=== PATIENT | female | born 1950 | race Caucasian/White ===

== ENCOUNTER 2021-02-26 19:37 | Emergency (ER) ==
[2021-02-27 13:18] LABS: SARS-CoV-2 PCR by NAA DETECTED (NotDetected)
== END 2021-02-26 22:30 | disposition home or self-care (01) ==
LOC: ERS 19:37
DX: U07.1 COVID-19 (principal); I12.9 Hypertensive chronic kidney disease with stage 1 through stage 4 chronic kidney disease, or unspecified chronic kidney disease; N18.9 Chronic kidney disease, unspecified; J44.9 Chronic obstructive pulmonary disease, unspecified; Z86.718 Personal history of other venous thrombosis and embolism; M10.9 Gout, unspecified
CPT/HCPCS: 71045; U0003; U0005

== ENCOUNTER 2021-02-28 18:25 | Inpatient (IN) | payer MEDICARE, OTHER ==
[2021-02-28 19:35] LABS: #Eosinphils 0.1 thou/uL (0.0-0.7); #Lymphocytes 1.2 thou/uL (1.20-3.40); #Monocytes 0.7 thou/uL (0.11-0.59); #Neutrophils 7.3 thou/uL (1.40-6.50); %Basophils 0.4 % (0.0-1.0); %Eosinophils 1.1 % (0.0-10.0); %Lymphocytes 12.7 % (21.0-51.0); %Monocytes 7.4 % (0.0-10.0); %Neutrophils 78.4 % (42.0-75.0); Hemoglobin 10.3 g/dL (12.0-16.0); Mean Corpuscular Hemoglobin 30.1 pg (27.0-31.0); Mean Corpuscular Volume 91.2 fL (78.0-98.0); Platelet Count 197 thou/uL (130-400); RBC Distribution Width 13.1 % (11.5-14.5); Red Blood Cell (RBC) Count 3.41 mill/uL (4.20-5.40); White Blood Cell (WBC) Count 9.3 thou/uL (4.8-10.8)
[2021-02-28 19:49] LABS: ALT (SGPT) 19 U/L (8-55); AST (SGOT) 19 U/L (5-34); Albumin 3.4 g/dL (3.4-4.8); Alkaline Phosphatase 104 U/L (40-110); Anion Gap 16 mmol/L (10-20); BUN (Urea Nitrogen) 23 mg/dL (9.8-20.1); Bilirubin, Total 0.8 mg/dL (0.2-1.2); Calc. Creatinine Clearance 0 mL/min (70-130); Calcium 8.2 mg/dL (7.8-10.44); Carbon Dioxide 24 mmol/L (23-31); Chloride 96 mmol/L (98-107); Globulin 2.4 g/dL (2.4-3.5); Glucose 145 mg/dL (83-110); Potassium 3.9 mmol/L (3.5-5.1); Protein, Total 5.8 g/dL (5.8-8.1); Sodium 132 mmol/L (136-145)
[2021-02-28] MEDS ORDERED: Ondansetron PF 4 MG/2 ML Vial ONE (22:06)
[2021-02-28 22:58] LABS: Troponin I Less than 0.010 ng/mL (< 0.028)
[2021-02-28 22:58] LABS: Bilirubin Negative (Negative); Blood, Urine Negative (Negative); Clarity Clear (Clear); Glucose, Urine (Dipstick) Normal (Negative); Ketone, Urine Negative (Negative); Leukocyte 500 Leu/uL (Negative); Nitrite Negative (Negative); Protein, Urine (Dipstick) 10 mg/dL (Neg-Trace); RBC/HPF 0-3 HPF (0-3); Specific Gravity, Urine 1.011 (1.002-1.036); Squamous Epithelial 0-3 HPF (0-3); Urobilinogen Normal mg/dL (Less than 2); pH, Urine 5.5 (5.0-9.0)
[2021-02-28 22:59] LABS: Bacteria/HPF 1+ HPF (None Seen)
[2021-02-28] MEDS ORDERED: Ondansetron ODT 4 MG TAB PO PRN (23:31)
[2021-02-28] MEDS ORDERED: Lactated Ringer's 1,000 ML IV SCH (23:45)
[2021-03-01 00:43] VITALS: BMI 46.0
[2021-03-01] MEDS ORDERED: Acetaminophen 500 MG TAB PO SCH (01:00)
[2021-03-01] MEDS ORDERED: Cyclobenzaprine 10 MG TAB PO SCH (01:00)
[2021-03-01] MEDS: cefTRIAXone\\ROCEPHIN 1 GM in Sodium Chloride 0.9% 100 ML IVPB SCH (01:25)
[2021-03-01] MEDS: Sodium Chloride 0.9% 1,000 ML IV SCH ×3 (01:33→20:16)
[2021-03-01] MEDS ORDERED: Warfarin Sodium 5 MG TAB PO ONE (01:39)
[2021-03-01 02:35] LABS: Prothrombin Time 68.6 sec (12.0-14.7)
[2021-03-01 02:43] LABS: INR-International Normal Ratio 8.1
[2021-03-01 07:35] LABS: #Basophils 0.1 thou/uL (0.0-0.2); #Eosinphils 0.1 thou/uL (0.0-0.7); #Lymphocytes 1.3 thou/uL (1.20-3.40); #Monocytes 1.1 thou/uL (0.11-0.59); %Basophils 0.5 % (0.0-1.0); %Eosinophils 1.3 % (0.0-10.0); %Lymphocytes 12.3 % (21.0-51.0); %Monocytes 10.5 % (0.0-10.0); %Neutrophils 75.4 % (42.0-75.0); Hemoglobin 8.8 g/dL (12.0-16.0); Mean Corpuscular HGB CONC 32.4 g/dL (32.0-36.0); Mean Corpuscular Hemoglobin 29.9 pg (27.0-31.0); Mean Corpuscular Volume 92.3 fL (78.0-98.0); Mean Platelet Volume 10.2 fL (7.4-10.4); Platelet Count 180 thou/uL (130-400); RBC Distribution Width 13.1 % (11.5-14.5); Red Blood Cell (RBC) Count 2.95 mill/uL (4.20-5.40); White Blood Cell (WBC) Count 10.6 thou/uL (4.8-10.8)
[2021-03-01] MEDS: Trospium 20 MG TAB PO SCH (08:00)
[2021-03-01] MEDS ORDERED: Dexamethasone 4 MG TAB PO SCH ×2 (08:00→11:15)
[2021-03-01] MEDS: busPIRone HCl 10 MG TAB PO SCH (08:00)
[2021-03-01] MEDS: Ferrous Sulfate 325 MG TAB PO SCH (08:00)
[2021-03-01 08:16] LABS: ALT (SGPT) 15 U/L (8-55); AST (SGOT) 12 U/L (5-34); Albumin 3.2 g/dL (3.4-4.8); Alkaline Phosphatase 96 U/L (40-110); Anion Gap 13 mmol/L (10-20); BUN (Urea Nitrogen) 22 mg/dL (9.8-20.1); Bilirubin, Total 0.6 mg/dL (0.2-1.2); CRP (Inflammatory) 8.17 mg/dL (= or < 0.5); Calc. Creatinine Clearance 54 mL/min (70-130); Calcium 8.3 mg/dL (7.8-10.44); Carbon Dioxide 28 mmol/L (23-31); Chloride 101 mmol/L (98-107); Globulin 2.7 g/dL (2.4-3.5); Glucose 126 mg/dL (83-110); Potassium 4.5 mmol/L (3.5-5.1); Protein, Total 5.9 g/dL (5.8-8.1); Sodium 137 mmol/L (136-145)
[2021-03-01] MEDS: Acetaminophen 325 MG TAB PO PRN ×2 (11:33→16:19)
[2021-03-01] MEDS ORDERED: Warfarin Sodium 5 MG TAB PO SCH (17:00)
[2021-03-01] MEDS: Simvastatin 10 MG TAB PO SCH (20:17)
[2021-03-01] MEDS ORDERED: Benzonatate 100 MG CAP PO SCH (21:00)
[2021-03-02] MEDS: cefTRIAXone\\ROCEPHIN 1 GM in Sodium Chloride 0.9% 100 ML IVPB SCH (01:23)
[2021-03-02] MEDS: Sodium Chloride 0.9% 1,000 ML IV SCH ×5 (01:27→21:55)
[2021-03-02] MEDS: Acetaminophen 325 MG TAB PO PRN (05:58)
[2021-03-02 06:12] LABS: INR-International Normal Ratio 13.3
[2021-03-02 06:30] LABS: #Eosinphils 0.1 thou/uL (0.0-0.7); #Lymphocytes 0.9 thou/uL (1.20-3.40); #Monocytes 1.2 thou/uL (0.11-0.59); #Neutrophils 16.8 thou/uL (1.40-6.50); %Basophils 0.1 % (0.0-1.0); %Eosinophils 0.3 % (0.0-10.0); %Lymphocytes 4.9 % (21.0-51.0); %Monocytes 6.4 % (0.0-10.0); %Neutrophils 88.3 % (42.0-75.0); Hemoglobin 7.8 g/dL (12.0-16.0); Mean Corpuscular HGB CONC 32.6 g/dL (32.0-36.0); Mean Corpuscular Hemoglobin 30.1 pg (27.0-31.0); Mean Corpuscular Volume 92.3 fL (78.0-98.0); Mean Platelet Volume 9.6 fL (7.4-10.4); Platelet Count 273 thou/uL (130-400); RBC Distribution Width 13.3 % (11.5-14.5); White Blood Cell (WBC) Count 19.1 thou/uL (4.8-10.8)
[2021-03-02 06:38] LABS: Anion Gap 17 mmol/L (10-20); BUN (Urea Nitrogen) 27 mg/dL (9.8-20.1); Calc. Creatinine Clearance 50 mL/min (70-130); Calcium 7.9 mg/dL (7.8-10.44); Carbon Dioxide 23 mmol/L (23-31); Chloride 106 mmol/L (98-107); Glucose 171 mg/dL (83-110); Potassium 5.2 mmol/L (3.5-5.1); Sodium 141 mmol/L (136-145)
[2021-03-02] MEDS: Cepastat Lozenges 1 LOZ PO PRN ×2 (08:15→16:23)
[2021-03-02] MEDS: Trospium 20 MG TAB PO SCH (08:15)
[2021-03-02] MEDS: busPIRone HCl 10 MG TAB PO SCH (08:16)
[2021-03-02] MEDS: Cyclobenzaprine 10 MG TAB PO PRN ×2 (08:16→16:23)
[2021-03-02] MEDS: Dexamethasone 4 MG TAB PO SCH (08:16)
[2021-03-02] MEDS: Ferrous Sulfate 325 MG TAB PO SCH (08:17)
[2021-03-02] MEDS ORDERED: Phytonadione 10 MG/ML AMP SLOW IVP SCH (09:15)
[2021-03-02] MEDS ORDERED: Amlodipine 10 MG TAB PO SCH (10:15)
[2021-03-02 12:27] LABS: INR-International Normal Ratio 2.8; Prothrombin Time 29.5 sec (12.0-14.7)
[2021-03-02] MEDS: Simvastatin 10 MG TAB PO SCH (20:32)
[2021-03-03] MEDS: cefTRIAXone\\ROCEPHIN 1 GM in Sodium Chloride 0.9% 100 ML IVPB SCH (00:41)
[2021-03-03] MEDS: Sodium Chloride 0.9% 1,000 ML IV SCH ×2 (04:10→12:12)
[2021-03-03] MEDS: Cepastat Lozenges 1 LOZ PO PRN (06:00)
[2021-03-03 06:32] LABS: INR-International Normal Ratio 1.2; Prothrombin Time 14.7 sec (12.0-14.7)
[2021-03-03 06:47] LABS: Anion Gap 13 mmol/L (10-20); BUN (Urea Nitrogen) 31 mg/dL (9.8-20.1); Calc. Creatinine Clearance 52 mL/min (70-130); Calcium 7.5 mg/dL (7.8-10.44); Carbon Dioxide 23 mmol/L (23-31); Chloride 107 mmol/L (98-107); Glucose 145 mg/dL (83-110); Potassium 4.6 mmol/L (3.5-5.1); Sodium 138 mmol/L (136-145)
[2021-03-03] MEDS: Ferrous Sulfate 325 MG TAB PO SCH (08:43)
[2021-03-03] MEDS: Trospium 20 MG TAB PO SCH (08:43)
[2021-03-03] MEDS: busPIRone HCl 10 MG TAB PO SCH (08:43)
[2021-03-03] MEDS: Cyclobenzaprine 10 MG TAB PO PRN ×2 (08:43→15:37)
[2021-03-03] MEDS: Amlodipine 10 MG TAB PO SCH (08:43)
[2021-03-03] MEDS: Dexamethasone 4 MG TAB PO SCH (08:44)
[2021-03-03 11:53] LABS: Anisocytosis SLIGHT = 6-15 cells (100X) (0-5/hpf); Band 6 % (5-11); Lymphocytes 7 % (21-51); MDiff Complete? YES; Mean Corpuscular HGB CONC 32.1 g/dL (32.0-36.0); Mean Corpuscular Hemoglobin 30.3 pg (27.0-31.0); Mean Corpuscular Volume 94.3 fL (78.0-98.0); Mean Platelet Volume 9.3 fL (7.4-10.4); Monocytes 6 % (0-10); Neutrophil 81 % (42-75); Nucleated RBC 1 % (0); Platelet Count 304 thou/uL (130-400); Polychromasia SLIGHT = 2-3 cells (100X) (0-2/hpf); RBC Distribution Width 13.6 % (11.5-14.5); Red Blood Cell (RBC) Count 1.98 mill/uL (4.20-5.40); White Blood Cell (WBC) Count 21.5 thou/uL (4.8-10.8)
[2021-03-03] MEDS: Warfarin Sodium 2.5 MG TAB PO SCH (17:40)
[2021-03-03 18:19] LABS: Mean Corpuscular HGB CONC 33.8 g/dL (32.0-36.0); Mean Corpuscular Volume 91.7 fL (78.0-98.0); Mean Platelet Volume 8.5 fL (7.4-10.4); Platelet Count 248 thou/uL (130-400); RBC Distribution Width 13.6 % (11.5-14.5); Red Blood Cell (RBC) Count 2.57 mill/uL (4.20-5.40); White Blood Cell (WBC) Count 19.7 thou/uL (4.8-10.8)
[2021-03-03] MEDS: Simvastatin 10 MG TAB PO SCH (20:16)
[2021-03-04] MEDS: Trospium 20 MG TAB PO SCH (08:12)
[2021-03-04] MEDS: Cyclobenzaprine 10 MG TAB PO PRN ×2 (08:12→16:04)
[2021-03-04] MEDS: busPIRone HCl 10 MG TAB PO SCH (08:12)
[2021-03-04] MEDS: Ferrous Sulfate 325 MG TAB PO SCH (08:12)
[2021-03-04] MEDS: Cepastat Lozenges 1 LOZ PO PRN (08:12)
[2021-03-04] MEDS: Amlodipine 10 MG TAB PO SCH (08:12)
[2021-03-04] MEDS: Dexamethasone 4 MG TAB PO SCH (08:12)
[2021-03-04 08:30] LABS: Hemoglobin 7.6 g/dL (12.0-16.0); Mean Corpuscular HGB CONC 31.8 g/dL (32.0-36.0); Mean Corpuscular Hemoglobin 29.7 pg (27.0-31.0); Mean Corpuscular Volume 93.2 fL (78.0-98.0); Mean Platelet Volume 8.6 fL (7.4-10.4); Platelet Count 242 thou/uL (130-400); RBC Distribution Width 14.1 % (11.5-14.5); Red Blood Cell (RBC) Count 2.57 mill/uL (4.20-5.40)
[2021-03-04 08:31] LABS: INR-International Normal Ratio 1.2; Prothrombin Time 14.8 sec (12.0-14.7)
[2021-03-04 08:41] LABS: Anion Gap 13 mmol/L (10-20); BUN (Urea Nitrogen) 36 mg/dL (9.8-20.1); CRP (Inflammatory) 7.42 mg/dL (= or < 0.5); Calc. Creatinine Clearance 64 mL/min (70-130); Calcium 7.8 mg/dL (7.8-10.44); Carbon Dioxide 22 mmol/L (23-31); Chloride 112 mmol/L (98-107); Glucose 145 mg/dL (83-110); Potassium 4.8 mmol/L (3.5-5.1); Sodium 142 mmol/L (136-145)
[2021-03-04 11:00] LABS: Band 3 % (5-11); Lymphocytes 6 % (21-51); MDiff Complete? YES; Monocytes 4 % (0-10); Neutrophil 87 % (42-75); Platelet Morphology Comment Appears Adequate; Polychromasia MODERATE = 3-4 cells (100X) (0-2/hpf)
[2021-03-04] MEDS ORDERED: Glycerin Adult Supp. (24 ct jar) PR SCH (11:30)
[2021-03-04] MEDS: Senokot S 8.6-50 MG TAB PO PRN (12:29)
[2021-03-04] MEDS ORDERED: hydrOXYzine 10 MG TAB PO PRN (14:39)
[2021-03-04] MEDS: Warfarin Sodium 2.5 MG TAB PO SCH (16:04)
[2021-03-04] MEDS: Sodium Chloride 0.9% 1,000 ML IV SCH (16:54)
[2021-03-04] MEDS: Simvastatin 10 MG TAB PO SCH (20:56)
[2021-03-05] MEDS: Sodium Chloride 0.9% 1,000 ML IV SCH (05:25)
[2021-03-05 06:15] LABS: INR-International Normal Ratio 1.2; Prothrombin Time 14.8 sec (12.0-14.7)
[2021-03-05] MEDS ORDERED: Glycerin Adult Supp. (24 ct jar) PR SCH (06:15)
[2021-03-05 06:27] LABS: Anion Gap 12 mmol/L (10-20); BUN (Urea Nitrogen) 39 mg/dL (9.8-20.1); CRP (Inflammatory) 3.87 mg/dL (= or < 0.5); Calc. Creatinine Clearance 74 mL/min (70-130); Calcium 8.4 mg/dL (7.8-10.44); Carbon Dioxide 25 mmol/L (23-31); Chloride 112 mmol/L (98-107); Glucose 126 mg/dL (83-110); Potassium 5.2 mmol/L (3.5-5.1); Sodium 144 mmol/L (136-145)
[2021-03-05 07:16] LABS: Band 5 % (5-11); Hemoglobin 7.9 g/dL (12.0-16.0); Lymphocytes 6 % (21-51); MDiff Complete? YES; Mean Corpuscular HGB CONC 33.4 g/dL (32.0-36.0); Mean Corpuscular Hemoglobin 31.4 pg (27.0-31.0); Mean Corpuscular Volume 93.9 fL (78.0-98.0); Mean Platelet Volume 8.7 fL (7.4-10.4); Monocytes 7 % (0-10); Neutrophil 82 % (42-75); Platelet Count 257 thou/uL (130-400); Platelet Morphology Comment Appears Adequate; Polychromasia MODERATE = 3-4 cells (100X) (0-2/hpf); RBC Distribution Width 14.7 % (11.5-14.5); White Blood Cell (WBC) Count 16.3 thou/uL (4.8-10.8)
[2021-03-05] MEDS: Cyclobenzaprine 10 MG TAB PO PRN (08:18)
[2021-03-05] MEDS: busPIRone HCl 10 MG TAB PO SCH (08:19)
[2021-03-05] MEDS: Cepastat Lozenges 1 LOZ PO PRN (08:19)
[2021-03-05] MEDS: Amlodipine 10 MG TAB PO SCH (08:19)
[2021-03-05] MEDS: Trospium 20 MG TAB PO SCH (08:19)
[2021-03-05] MEDS: Ferrous Sulfate 325 MG TAB PO SCH (08:19)
[2021-03-05] MEDS: Dexamethasone 4 MG TAB PO SCH (08:19)
[2021-03-05] MEDS: Polyethylene Glycol 3350 17 GM Packet PO SCH ×2 (09:29→21:01)
[2021-03-05] MEDS: Apixaban 5 MG TAB PO SCH (21:01)
[2021-03-05] MEDS: Simvastatin 10 MG TAB PO SCH (21:01)
[2021-03-06 06:39] LABS: Hemoglobin 8.5 g/dL (12.0-16.0); Mean Corpuscular HGB CONC 32.8 g/dL (32.0-36.0); Mean Corpuscular Hemoglobin 30.7 pg (27.0-31.0); Mean Corpuscular Volume 93.7 fL (78.0-98.0); Mean Platelet Volume 8.1 fL (7.4-10.4); Platelet Count 265 thou/uL (130-400); RBC Distribution Width 14.7 % (11.5-14.5); Red Blood Cell (RBC) Count 2.76 mill/uL (4.20-5.40); White Blood Cell (WBC) Count 19.5 thou/uL (4.8-10.8)
[2021-03-06 06:55] LABS: INR-International Normal Ratio 1.4; Prothrombin Time 17.6 sec (12.0-14.7)
[2021-03-06 06:57] LABS: Anion Gap 13 mmol/L (10-20); BUN (Urea Nitrogen) 36 mg/dL (9.8-20.1); CRP (Inflammatory) 1.91 mg/dL (= or < 0.5); Calc. Creatinine Clearance 91 mL/min (70-130); Calcium 8.1 mg/dL (7.8-10.44); Carbon Dioxide 25 mmol/L (23-31); Chloride 109 mmol/L (98-107); Glucose 137 mg/dL (83-110); Potassium 4.9 mmol/L (3.5-5.1); Sodium 142 mmol/L (136-145)
[2021-03-06 08:03] LABS: Band 4 % (5-11); Lymphocytes 8 % (21-51); MDiff Complete? YES; Metamyelocyte 2 % (0-0); Monocytes 5 % (0-10); Myelocyte 4 % (0-0); Neutrophil 77 % (42-75); Platelet Morphology Comment Appears Adequate; Polychromasia SLIGHT = 2-3 cells (100X) (0-2/hpf)
[2021-03-06] MEDS: Cyclobenzaprine 10 MG TAB PO PRN (08:34)
[2021-03-06] MEDS: Cepastat Lozenges 1 LOZ PO PRN (08:34)
[2021-03-06] MEDS: Dexamethasone 4 MG TAB PO SCH (08:34)
[2021-03-06] MEDS: Senokot S 8.6-50 MG TAB PO PRN (08:34)
[2021-03-06] MEDS: Apixaban 5 MG TAB PO SCH ×2 (08:34→21:20)
[2021-03-06] MEDS: busPIRone HCl 10 MG TAB PO SCH (08:34)
[2021-03-06] MEDS: Ferrous Sulfate 325 MG TAB PO SCH (08:34)
[2021-03-06] MEDS: Trospium 20 MG TAB PO SCH (08:34)
[2021-03-06] MEDS: Amlodipine 10 MG TAB PO SCH (08:35)
[2021-03-06] MEDS: Polyethylene Glycol 3350 17 GM Packet PO SCH ×3 (09:24→21:20)
[2021-03-06 20:33] VITALS: TEMP 98.1
[2021-03-06] MEDS: Simvastatin 10 MG TAB PO SCH (21:20)
[2021-03-07 06:06] LABS: INR-International Normal Ratio 1.4; Prothrombin Time 17.3 sec (12.0-14.7)
[2021-03-07 06:07] LABS: Hemoglobin 8.6 g/dL (12.0-16.0); Mean Corpuscular HGB CONC 32.3 g/dL (32.0-36.0); Mean Corpuscular Hemoglobin 30.8 pg (27.0-31.0); Mean Corpuscular Volume 95.3 fL (78.0-98.0); Mean Platelet Volume 7.8 fL (7.4-10.4); Platelet Count 295 thou/uL (130-400); RBC Distribution Width 15.3 % (11.5-14.5); Red Blood Cell (RBC) Count 2.78 mill/uL (4.20-5.40); White Blood Cell (WBC) Count 20.4 thou/uL (4.8-10.8)
[2021-03-07 06:21] LABS: Anion Gap 14 mmol/L (10-20); BUN (Urea Nitrogen) 37 mg/dL (9.8-20.1); CRP (Inflammatory) 1.08 mg/dL (= or < 0.5); Calc. Creatinine Clearance 92 mL/min (70-130); Calcium 8.6 mg/dL (7.8-10.44); Carbon Dioxide 28 mmol/L (23-31); Chloride 107 mmol/L (98-107); Glucose 130 mg/dL (83-110); Potassium 5.4 mmol/L (3.5-5.1); Sodium 144 mmol/L (136-145)
[2021-03-07 07:16] LABS: Band 14 % (5-11); Lymphocytes 7 % (21-51); MDiff Complete? YES; Metamyelocyte 6 % (0-0); Myelocyte 6 % (0-0); Neutrophil 67 % (42-75)
[2021-03-07] MEDS: busPIRone HCl 10 MG TAB PO SCH (08:19)
[2021-03-07] MEDS: Apixaban 5 MG TAB PO SCH (08:19)
[2021-03-07] MEDS: Ferrous Sulfate 325 MG TAB PO SCH (08:19)
[2021-03-07] MEDS: Cepastat Lozenges 1 LOZ PO PRN (08:19)
[2021-03-07] MEDS: Amlodipine 10 MG TAB PO SCH (08:19)
[2021-03-07] MEDS: Polyethylene Glycol 3350 17 GM Packet PO SCH (08:20)
[2021-03-07] MEDS: Trospium 20 MG TAB PO SCH (08:20)
[2021-03-07] MEDS: Cyclobenzaprine 10 MG TAB PO PRN (08:20)
[2021-03-07] MEDS: Dexamethasone 4 MG TAB PO SCH (08:20)
[2021-03-07 08:56] VITALS: BP 149/84
[2021-03-07] MEDS ORDERED: Hydrochlorothiazide 25 MG TAB PO SCH (09:00)
[2021-03-07] MEDS ORDERED: Phenazopyridine HCl 100 MG TAB PO SCH (21:00)
== END 2021-03-07 18:26 | disposition home health service (06) | DRG 177 ==
LOC: ERS 18:25 → T4-B 20:13 → OBSVTOIN 03-01 10:29
PROVIDERS: ADMIT Student in an Organized Health Care Education/Training Program; ATTEND Student in an Organized Health Care Education/Training Program
PROC: 8E0ZXY6 Isolation (ICD-10-PCS; 2021-03-01)
PROC: 30233N1 Transfusion of Nonautologous Red Blood Cells into Peripheral Vein, Percutaneous Approach (ICD-10-PCS; principal; 2021-03-03)
DX: U07.1 COVID-19 (principal); J12.82 Pneumonia due to coronavirus disease 2019; N30.00 Acute cystitis without hematuria; I82.509 Chronic embolism and thrombosis of unspecified deep veins of unspecified lower extremity; Z68.42 Body mass index [BMI] 45.0-49.9, adult; I48.20 Chronic atrial fibrillation, unspecified; J98.11 Atelectasis; N17.9 Acute kidney failure, unspecified; I12.9 Hypertensive chronic kidney disease with stage 1 through stage 4 chronic kidney disease, or unspecified chronic kidney disease; E66.01 Morbid (severe) obesity due to excess calories; E86.0 Dehydration; M10.9 Gout, unspecified; E86.9 Volume depletion, unspecified; N18.9 Chronic kidney disease, unspecified; D63.1 Anemia in chronic kidney disease; D64.9 Anemia, unspecified; R19.5 Other fecal abnormalities; K59.00 Constipation, unspecified; Z88.5 Allergy status to narcotic agent; Z79.899 Other long term (current) drug therapy; Z79.01 Long term (current) use of anticoagulants; Z79.84 Long term (current) use of oral hypoglycemic drugs; Z90.49 Acquired absence of other specified parts of digestive tract; Z90.710 Acquired absence of both cervix and uterus; Z87.442 Personal history of urinary calculi
CPT/HCPCS: 36415; 36430; 71045; 80048; 80053; 81003; 81015; 82274; 82550; 83605; 84484; 85025; 85610; 86140; 86850; 86900; 86901; 87040; 87077; 87086; 87186; 93005; 93975; 96365; 96374; 96375; G0378; J0696; J2405; J3430; J3490; J7050; J8540; P9016; Q0162

== ENCOUNTER 2023-04-29 12:03 | Inpatient (IN) | payer MEDICARE, OTHER ==
[2023-04-29] MEDS ORDERED: Acetaminophen 325 MG TAB ONE (13:43)
[2023-04-29] MEDS ORDERED: Ketorolac Tromethamine 30 MG/ML VIAL ONE (13:43)
[2023-04-29 14:26] LABS: #Basophils 0.1 thou/uL (0.0-0.2); #Eosinphils 0.1 thou/uL (0.0-0.7); #Monocytes 1.1 thou/uL (0.11-0.59); #Neutrophils 9.4 thou/uL (1.40-6.50); %Basophils 0.6 % (0.0-1.0); %Eosinophils 0.5 % (0.0-10.0); %Lymphocytes 8.3 % (21.0-51.0); %Monocytes 9.2 % (0.0-10.0); %Neutrophils 81.1 % (42.0-75.0); Hematocrit 39.7 % (36.0-47.0); Hemoglobin 12.9 g/dL (12.0-16.0); Mean Corpuscular HGB CONC 32.5 g/dL (32.0-36.0); Mean Corpuscular Hemoglobin 30.4 pg (27.0-31.0); Mean Corpuscular Volume 93.4 fl (78.0-98.0); Mean Platelet Volume 11.1 fL (7.4-10.4); Platelet Count 178 10x3/uL (130-400); RBC Distribution Width 13.9 % (11.5-14.5); Red Blood Cell (RBC) Count 4.25 mill/uL (4.20-5.40); White Blood Cell (WBC) Count 11.5 10x3/uL (4.8-10.8)
[2023-04-29 14:40] LABS: INR-International Normal Ratio 1.6; Prothrombin Time 19.7 sec (12.0-14.7)
[2023-04-29 14:41] LABS: PTT 41.8 sec (22.9-36.1)
[2023-04-29 15:04] LABS: ALT (SGPT) 7 U/L (8-55); AST (SGOT) 11 U/L (5-34); Albumin 3.8 g/dL (3.4-4.8); Alkaline Phosphatase 104 U/L (40-110); Anion Gap 17 mmol/L (10-20); BUN (Urea Nitrogen) 40 mg/dL (9.8-20.1); Bilirubin, Total 1.4 mg/dL (0.2-1.2); Calc. Creatinine Clearance 0 mL/min (70-130); Calcium 9.7 mg/dL (7.8-10.44); Carbon Dioxide 33 mmol/L (23-31); Chloride 97 mmol/L (98-107); Estimated GFR 27; Globulin 3.6 g/dL (2.4-3.5); Glucose 125 mg/dL (83-110); Potassium 3.4 mmol/L (3.5-5.1); Protein, Total 7.4 g/dL (5.8-8.1); Sodium 144 mmol/L (136-145)
[2023-04-29] MEDS ORDERED: cefTRIAXone (ROCEPHIN) 1 GM VIAL ONE (16:17)
[2023-04-29] MEDS ORDERED: Sodium Chloride 0.9% 100 ML ONE (16:17)
[2023-04-29] MEDS ORDERED: Potassium Chloride 20 MEQ TAB PO SCH (17:30)
[2023-04-29] MEDS ORDERED: Bisacodyl 5 MG TAB PO PRN (17:42)
[2023-04-29] MEDS ORDERED: Ondansetron PF 4 MG/2 ML Vial IVP PRN (17:42)
[2023-04-29] MEDS ORDERED: Acetaminophen 325 MG TAB PO PRN (17:42)
[2023-04-29 17:46] VITALS: BMI 43.1
[2023-04-29] MEDS: Sodium Chloride 0.9% 1,000 ML IV SCH (18:37)
[2023-04-29] MEDS: CEFAZOLIN 1 GM in Sodium Chloride 0.9% 100 ML IVPB SCH (21:40)
[2023-04-29] MEDS ORDERED: traMADol HCl 50 MG TAB PO SCH (23:15)
[2023-04-29] MEDS ORDERED: Acetaminophen 500 MG TAB PO SCH (23:15)
[2023-04-30] MEDS: CEFAZOLIN 1 GM in Sodium Chloride 0.9% 100 ML IVPB SCH ×3 (06:06→21:43)
[2023-04-30 06:24] LABS: #Eosinphils 0.2 thou/uL (0.0-0.7); #Monocytes 0.9 thou/uL (0.11-0.59); #Neutrophils 8.1 thou/uL (1.40-6.50); %Basophils 0.4 % (0.0-1.0); %Monocytes 8.8 % (0.0-10.0); %Neutrophils 77.3 % (42.0-75.0); Hematocrit 36.1 % (36.0-47.0); Hemoglobin 11.6 g/dL (12.0-16.0); Mean Corpuscular HGB CONC 32.1 g/dL (32.0-36.0); Mean Corpuscular Hemoglobin 30.2 pg (27.0-31.0); Mean Platelet Volume 11.7 fL (7.4-10.4); Platelet Count 173 10x3/uL (130-400); Red Blood Cell (RBC) Count 3.84 mill/uL (4.20-5.40); White Blood Cell (WBC) Count 10.5 10x3/uL (4.8-10.8)
[2023-04-30 06:49] LABS: Anion Gap 15 mmol/L (10-20); BUN (Urea Nitrogen) 48 mg/dL (9.8-20.1); Calc. Creatinine Clearance 38 mL/min (70-130); Carbon Dioxide 31 mmol/L (23-31); Chloride 98 mmol/L (98-107); Estimated GFR 23; Glucose 138 mg/dL (83-110); Potassium 3.3 mmol/L (3.5-5.1); Sodium 141 mmol/L (136-145)
[2023-04-30] MEDS: traMADol HCl 50 MG TAB PO PRN ×2 (13:07→23:38)
[2023-04-30] MEDS: Sodium Chloride 0.9% 1,000 ML IV SCH ×3 (14:18→15:25)
[2023-04-30] MEDS ORDERED: Potassium Chloride 20 MEQ TAB PO SCH (15:30)
[2023-04-30] MEDS: Budesonide 0.25 MG/2 ML NEB INH SCH (19:32)
[2023-04-30] MEDS: Atorvastatin Calcium 40 MG TAB PO SCH (21:43)
[2023-04-30] MEDS: Apixaban 5 MG TAB PO SCH (21:43)
[2023-04-30] MEDS: TICAGRELOR 90 MG TABLET PO SCH (21:46)
[2023-05-01] MEDS: CEFAZOLIN 1 GM in Sodium Chloride 0.9% 100 ML IVPB SCH ×3 (04:09→19:41)
[2023-05-01 06:12] LABS: #Eosinphils 0.4 thou/uL (0.0-0.7); #Monocytes 0.9 thou/uL (0.11-0.59); #Neutrophils 5.5 thou/uL (1.40-6.50); %Basophils 0.5 % (0.0-1.0); %Eosinophils 4.5 % (0.0-10.0); %Lymphocytes 13.6 % (21.0-51.0); %Monocytes 11.5 % (0.0-10.0); %Neutrophils 69.6 % (42.0-75.0); Hematocrit 33.6 % (36.0-47.0); Hemoglobin 10.4 g/dL (12.0-16.0); Mean Corpuscular Hemoglobin 29.9 pg (27.0-31.0); Mean Corpuscular Volume 96.6 fl (78.0-98.0); Mean Platelet Volume 11.4 fL (7.4-10.4); Platelet Count 163 10x3/uL (130-400); Red Blood Cell (RBC) Count 3.48 mill/uL (4.20-5.40); White Blood Cell (WBC) Count 7.8 10x3/uL (4.8-10.8)
[2023-05-01 06:57] LABS: Anion Gap 16 mmol/L (10-20); BUN (Urea Nitrogen) 46 mg/dL (9.8-20.1); Calc. Creatinine Clearance 46 mL/min (70-130); Calcium 8.6 mg/dL (7.8-10.44); Carbon Dioxide 31 mmol/L (23-31); Chloride 99 mmol/L (98-107); Estimated GFR 29; Glucose 111 mg/dL (83-110); Potassium 4.3 mmol/L (3.5-5.1); Sodium 142 mmol/L (136-145)
[2023-05-01] MEDS: traMADol HCl 50 MG TAB PO PRN (06:57)
[2023-05-01] MEDS: Budesonide 0.25 MG/2 ML NEB INH SCH ×2 (06:58→17:55)
[2023-05-01] MEDS: Sodium Chloride 0.9% 1,000 ML IV SCH ×2 (08:33→19:43)
[2023-05-01] MEDS: Apixaban 5 MG TAB PO SCH ×2 (08:33→19:42)
[2023-05-01] MEDS: Amlodipine 5 MG TAB PO SCH (08:33)
[2023-05-01] MEDS: TICAGRELOR 90 MG TABLET PO SCH ×2 (13:04→20:59)
[2023-05-01] MEDS ORDERED: AFRIN NASAL MIST 15 ML BOT NS PRN (14:33)
[2023-05-01] MEDS ORDERED: Oxymetazoline HCl 0.05% (30 ML BOT) NS PRN (14:50)
[2023-05-01] MEDS: Atorvastatin Calcium 40 MG TAB PO SCH (19:42)
[2023-05-02] MEDS: CEFAZOLIN 1 GM in Sodium Chloride 0.9% 100 ML IVPB SCH ×3 (05:44→20:11)
[2023-05-02 06:45] LABS: #Eosinphils 0.2 thou/uL (0.0-0.7); %Basophils 0.4 % (0.0-1.0); %Lymphocytes 9.2 % (21.0-51.0); %Monocytes 12.3 % (0.0-10.0); %Neutrophils 74.7 % (42.0-75.0); Hematocrit 31.6 % (36.0-47.0); Hemoglobin 9.7 g/dL (12.0-16.0); Mean Corpuscular HGB CONC 30.7 g/dL (32.0-36.0); Mean Corpuscular Hemoglobin 30.1 pg (27.0-31.0); Mean Corpuscular Volume 98.1 fl (78.0-98.0); Mean Platelet Volume 11.5 fL (7.4-10.4); Platelet Count 155 10x3/uL (130-400); RBC Distribution Width 13.8 % (11.5-14.5); Red Blood Cell (RBC) Count 3.22 mill/uL (4.20-5.40)
[2023-05-02] MEDS: Budesonide 0.25 MG/2 ML NEB INH SCH ×2 (07:03→18:10)
[2023-05-02 07:07] LABS: Anion Gap 11 mmol/L (10-20); BUN (Urea Nitrogen) 39 mg/dL (9.8-20.1); Calc. Creatinine Clearance 59 mL/min (70-130); Calcium 8.9 mg/dL (7.8-10.44); Carbon Dioxide 33 mmol/L (23-31); Chloride 102 mmol/L (98-107); Estimated GFR 39; Glucose 108 mg/dL (83-110); Magnesium 2.1 mg/dL (1.6-2.6); Potassium 4.2 mmol/L (3.5-5.1); Sodium 142 mmol/L (136-145)
[2023-05-02] MEDS: Apixaban 5 MG TAB PO SCH ×2 (09:28→20:10)
[2023-05-02] MEDS: Amlodipine 5 MG TAB PO SCH (09:28)
[2023-05-02] MEDS: TICAGRELOR 90 MG TABLET PO SCH ×2 (09:28→20:10)
[2023-05-02] MEDS ORDERED: Cyclobenzaprine 10 MG TAB PO PRN (17:02)
[2023-05-02] MEDS: Lidocaine 4% Patch TD SCH (17:11)
[2023-05-02] MEDS ORDERED: Cyclobenzaprine 10 MG TAB PO SCH (17:15)
[2023-05-02] MEDS: traMADol HCl 50 MG TAB PO PRN (20:10)
[2023-05-02] MEDS: Atorvastatin Calcium 40 MG TAB PO SCH (20:11)
[2023-05-03] MEDS: Transdermal Patch Removal TOP SCH (06:00)
[2023-05-03] MEDS: CEFAZOLIN 1 GM in Sodium Chloride 0.9% 100 ML IVPB SCH ×3 (06:00→20:45)
[2023-05-03 06:49] LABS: #Eosinphils 0.2 thou/uL (0.0-0.7); #Monocytes 1.1 thou/uL (0.11-0.59); #Neutrophils 6.3 thou/uL (1.40-6.50); %Basophils 0.3 % (0.0-1.0); %Eosinophils 2.7 % (0.0-10.0); %Lymphocytes 10.5 % (21.0-51.0); %Monocytes 12.4 % (0.0-10.0); %Neutrophils 73.6 % (42.0-75.0); Hematocrit 32.2 % (36.0-47.0); Hemoglobin 9.8 g/dL (12.0-16.0); Mean Corpuscular HGB CONC 30.4 g/dL (32.0-36.0); Mean Corpuscular Hemoglobin 29.8 pg (27.0-31.0); Mean Corpuscular Volume 97.9 fl (78.0-98.0); Mean Platelet Volume 11.4 fL (7.4-10.4); Platelet Count 176 10x3/uL (130-400); RBC Distribution Width 13.6 % (11.5-14.5); Red Blood Cell (RBC) Count 3.29 mill/uL (4.20-5.40); White Blood Cell (WBC) Count 8.6 10x3/uL (4.8-10.8)
[2023-05-03 07:20] LABS: Anion Gap 12 mmol/L (10-20); BUN (Urea Nitrogen) 28 mg/dL (9.8-20.1); Calc. Creatinine Clearance 65 mL/min (70-130); Calcium 9.4 mg/dL (7.8-10.44); Carbon Dioxide 33 mmol/L (23-31); Chloride 105 mmol/L (98-107); Estimated GFR 44; Glucose 106 mg/dL (83-110); Potassium 4.6 mmol/L (3.5-5.1); Sodium 145 mmol/L (136-145)
[2023-05-03] MEDS: Budesonide 0.25 MG/2 ML NEB INH SCH ×2 (07:21→18:15)
[2023-05-03] MEDS: Amlodipine 5 MG TAB PO SCH (08:57)
[2023-05-03] MEDS: Apixaban 5 MG TAB PO SCH ×2 (08:58→20:45)
[2023-05-03] MEDS: traMADol HCl 50 MG TAB PO PRN (08:59)
[2023-05-03] MEDS: TICAGRELOR 90 MG TABLET PO SCH ×2 (09:00→20:45)
[2023-05-03] MEDS ORDERED: Gabapentin 100 MG CAP PO SCH (09:00)
[2023-05-03] MEDS: Gabapentin 100 MG CAP PO SCH ×2 (16:04→20:46)
[2023-05-03] MEDS: Lidocaine 4% Patch TD SCH (17:29)
[2023-05-03] MEDS: Atorvastatin Calcium 40 MG TAB PO SCH (20:46)
[2023-05-04] MEDS: Transdermal Patch Removal TOP SCH (06:07)
[2023-05-04] MEDS: CEFAZOLIN 1 GM in Sodium Chloride 0.9% 100 ML IVPB SCH ×3 (06:07→21:10)
[2023-05-04] MEDS: Budesonide 0.25 MG/2 ML NEB INH SCH ×2 (07:02→18:38)
[2023-05-04] MEDS: Amlodipine 5 MG TAB PO SCH (08:07)
[2023-05-04] MEDS: Apixaban 5 MG TAB PO SCH ×2 (08:20→21:07)
[2023-05-04] MEDS: Gabapentin 100 MG CAP PO SCH ×3 (08:20→21:08)
[2023-05-04] MEDS: TICAGRELOR 90 MG TABLET PO SCH ×2 (08:21→21:09)
[2023-05-04 11:09] LABS: #Eosinphils 0.2 thou/uL (0.0-0.7); #Monocytes 0.9 thou/uL (0.11-0.59); %Basophils 0.5 % (0.0-1.0); %Eosinophils 2.2 % (0.0-10.0); %Lymphocytes 9.9 % (21.0-51.0); %Monocytes 11.4 % (0.0-10.0); %Neutrophils 75.5 % (42.0-75.0); Hematocrit 33.5 % (36.0-47.0); Mean Corpuscular HGB CONC 29.9 g/dL (32.0-36.0); Mean Corpuscular Hemoglobin 29.5 pg (27.0-31.0); Mean Corpuscular Volume 98.8 fl (78.0-98.0); Platelet Count 198 10x3/uL (130-400); RBC Distribution Width 13.7 % (11.5-14.5); Red Blood Cell (RBC) Count 3.39 mill/uL (4.20-5.40); White Blood Cell (WBC) Count 7.9 10x3/uL (4.8-10.8)
[2023-05-04 12:23] LABS: Anion Gap 16 mmol/L (10-20); BUN (Urea Nitrogen) 30 mg/dL (9.8-20.1); Calc. Creatinine Clearance 66 mL/min (70-130); Calcium 9.5 mg/dL (7.8-10.44); Carbon Dioxide 29 mmol/L (23-31); Chloride 104 mmol/L (98-107); Estimated GFR 44; Glucose 116 mg/dL (83-110); Potassium 4.5 mmol/L (3.5-5.1); Sodium 144 mmol/L (136-145)
[2023-05-04] MEDS: Lidocaine 4% Patch TD SCH (17:46)
[2023-05-04] MEDS: Atorvastatin Calcium 40 MG TAB PO SCH (21:07)
[2023-05-05] MEDS: Transdermal Patch Removal TOP SCH (05:02)
[2023-05-05] MEDS: CEFAZOLIN 1 GM in Sodium Chloride 0.9% 100 ML IVPB SCH ×2 (05:04→15:21)
[2023-05-05 05:07] LABS: #Eosinphils 0.2 thou/uL (0.0-0.7); #Monocytes 0.8 thou/uL (0.11-0.59); #Neutrophils 4.9 thou/uL (1.40-6.50); %Basophils 0.4 % (0.0-1.0); %Eosinophils 2.7 % (0.0-10.0); %Lymphocytes 11.8 % (21.0-51.0); %Neutrophils 72.7 % (42.0-75.0); Hematocrit 33.1 % (36.0-47.0); Hemoglobin 9.8 g/dL (12.0-16.0); Mean Corpuscular HGB CONC 29.6 g/dL (32.0-36.0); Mean Corpuscular Volume 101.2 fl (78.0-98.0); Mean Platelet Volume 10.6 fL (7.4-10.4); Platelet Count 200 10x3/uL (130-400); RBC Distribution Width 13.6 % (11.5-14.5); Red Blood Cell (RBC) Count 3.27 mill/uL (4.20-5.40); White Blood Cell (WBC) Count 6.8 10x3/uL (4.8-10.8)
[2023-05-05 05:20] LABS: Anion Gap 10 mmol/L (10-20); BUN (Urea Nitrogen) 32 mg/dL (9.8-20.1); Calc. Creatinine Clearance 64 mL/min (70-130); Carbon Dioxide 34 mmol/L (23-31); Chloride 107 mmol/L (98-107); Estimated GFR 43; Glucose 107 mg/dL (83-110); Potassium 4.8 mmol/L (3.5-5.1); Sodium 146 mmol/L (136-145)
[2023-05-05] MEDS: Budesonide 0.25 MG/2 ML NEB INH SCH ×2 (07:26→19:08)
[2023-05-05] MEDS: Amlodipine 5 MG TAB PO SCH (09:06)
[2023-05-05] MEDS: Apixaban 5 MG TAB PO SCH ×2 (09:07→21:10)
[2023-05-05] MEDS: TICAGRELOR 90 MG TABLET PO SCH ×2 (09:08→21:10)
[2023-05-05] MEDS: Gabapentin 100 MG CAP PO SCH ×3 (09:45→21:10)
[2023-05-05] MEDS: Lidocaine 4% Patch TD SCH (17:28)
[2023-05-05] MEDS: Cephalexin 250 MG CAP PO SCH (17:28)
[2023-05-05] MEDS: Atorvastatin Calcium 40 MG TAB PO SCH (21:10)
[2023-05-06] MEDS: Cephalexin 250 MG CAP PO SCH ×3 (00:20→12:29)
[2023-05-06] MEDS: Transdermal Patch Removal TOP SCH (05:56)
[2023-05-06] MEDS: Budesonide 0.25 MG/2 ML NEB INH SCH (06:52)
[2023-05-06] MEDS: Gabapentin 100 MG CAP PO SCH ×2 (09:20→14:49)
[2023-05-06] MEDS: TICAGRELOR 90 MG TABLET PO SCH (09:20)
[2023-05-06] MEDS: Apixaban 5 MG TAB PO SCH (09:20)
[2023-05-06] MEDS: Amlodipine 5 MG TAB PO SCH (09:21)
[2023-05-06] MEDS: traMADol HCl 50 MG TAB PO PRN (11:14)
[2023-05-06 13:21] VITALS: BP 117/71; TEMP 97.5
== END 2023-05-06 15:13 | DRG 603 ==
LOC: ERS 12:03 → T4-A 17:37
PROVIDERS: ADMIT Internal Medicine; ATTEND Internal Medicine
DX: L03.116 Cellulitis of left lower limb (principal); N17.9 Acute kidney failure, unspecified; L03.115 Cellulitis of right lower limb; I12.9 Hypertensive chronic kidney disease with stage 1 through stage 4 chronic kidney disease, or unspecified chronic kidney disease; N18.30 Chronic kidney disease, stage 3 unspecified; E87.6 Hypokalemia; J44.9 Chronic obstructive pulmonary disease, unspecified; M10.9 Gout, unspecified; I25.10 Atherosclerotic heart disease of native coronary artery without angina pectoris; E11.22 Type 2 diabetes mellitus with diabetic chronic kidney disease; Z90.49 Acquired absence of other specified parts of digestive tract; Z90.710 Acquired absence of both cervix and uterus; Z79.899 Other long term (current) drug therapy; Z79.01 Long term (current) use of anticoagulants; Z88.5 Allergy status to narcotic agent
CPT/HCPCS: 36415; 36416; 80048; 80053; 83735; 84145; 85025; 85610; 85730; 86140; 94640; 96365; 96375; J0690; J0696; J1885; J3490; J7050; J7626

== ENCOUNTER 2024-05-11 16:45 | Inpatient (IN) | payer MEDICARE, OTHER ==
[~2024-05-11 16:45] MED LIST: Iopamidol-370 76% 500 ML MDV (1 ML CHARGE) ONE
[2024-05-11 17:35] LABS: #Basophils 0.03 10x3/uL (0.0-0.2); %Basophils 0.3 % (0.0-1.0); %Lymphocytes 8.6 % (21.0-51.0); %Monocytes 6.2 % (0.0-10.0); %Neutrophils 81.6 % (42.0-75.0); Hematocrit 35.4 % (36.0-47.0); Hemoglobin 10.6 g/dL (12.0-16.0); Mean Corpuscular HGB CONC 29.9 g/dL (32.0-36.0); Mean Corpuscular Hemoglobin 29.9 pg (27.0-31.0); Mean Corpuscular Volume 99.7 fL (78.0-98.0); Mean Platelet Volume 10.8 fL (7.4-10.4); Platelet Count 116 10x3/uL (130-400); RBC Distribution Width 15.1 % (11.5-14.5); Red Blood Cell (RBC) Count 3.55 mill/uL (4.20-5.40)
[2024-05-11 17:45] LABS: ALT (SGPT) 10 U/L (8-55); AST (SGOT) 15 U/L (5-34); Alkaline Phosphatase 114 U/L (40-110); Anion Gap 13 mmol/L (10-20); BUN (Urea Nitrogen) 23 mg/dL (9.8-20.1); Bilirubin, Total 0.8 mg/dL (0.2-1.2); Calc. Creatinine Clearance 0 mL/min (70-130); Calcium 8.4 mg/dL (7.8-10.44); Carbon Dioxide 40 mmol/L (23-31); Chloride 97 mmol/L (98-107); Estimated GFR 44; Globulin 3.1 g/dL (2.4-3.5); Glucose 107 mg/dL (83-110); Potassium 3.3 mmol/L (3.5-5.1); Protein, Total 6.1 g/dL (5.8-8.1); Sodium 147 mmol/L (136-145)
[2024-05-11 17:48] LABS: Troponin I Less than 0.010 ng/mL (< 0.028)
[2024-05-11] MEDS ORDERED: Albuterol 200 PUFF (6.7GM INHALER) INH PRN (21:24)
[2024-05-11 22:17] LABS: Troponin I Less than 0.010 ng/mL (< 0.028)
[2024-05-11 22:56] LABS: Hemoglobin A1c 4.9 % (4.0-6.0)
[2024-05-11] MEDS: Aspirin 325 MG TAB PO SCH (23:29)
[2024-05-11] MEDS: Furosemide 40 MG (4 mL) VIAL SLOW IVP SCH (23:31)
[2024-05-11] MEDS: Apixaban 5 MG TAB PO SCH (23:31)
[2024-05-11] MEDS: Acetaminophen 325 MG TAB PO PRN (23:33)
[2024-05-12] MEDS: Potassium Chloride 20 MEQ TAB PO SCH (00:02)
[2024-05-12 00:05] LABS: Troponin I Less than 0.010 ng/mL (< 0.028)
[2024-05-12] MEDS: Aspirin 325 MG TAB PO SCH (00:51)
[2024-05-12 00:55] VITALS: BMI 49.1
[2024-05-12] MEDS: Cyclobenzaprine 10 MG TAB PO SCH ×2 (01:14→20:30)
[2024-05-12 04:23] LABS: #Basophils 0.04 10x3/uL (0.0-0.2); %Basophils 0.5 % (0.0-1.0); %Eosinophils 3.2 % (0.0-10.0); %Lymphocytes 11.8 % (21.0-51.0); %Monocytes 8.9 % (0.0-10.0); %Neutrophils 75.3 % (42.0-75.0); Hematocrit 33.5 % (36.0-47.0); Hemoglobin 10.1 g/dL (12.0-16.0); Mean Corpuscular HGB CONC 30.1 g/dL (32.0-36.0); Mean Corpuscular Hemoglobin 30.4 pg (27.0-31.0); Mean Corpuscular Volume 100.9 fL (78.0-98.0); Mean Platelet Volume 11.5 fL (7.4-10.4); Platelet Count 122 10x3/uL (130-400); RBC Distribution Width 15.1 % (11.5-14.5); Red Blood Cell (RBC) Count 3.32 mill/uL (4.20-5.40)
[2024-05-12 04:37] LABS: ALT (SGPT) 8 U/L (8-55); AST (SGOT) 13 U/L (5-34); Albumin 2.8 g/dL (3.4-4.8); Alkaline Phosphatase 101 U/L (40-110); Anion Gap 9 mmol/L (10-20); BUN (Urea Nitrogen) 23 mg/dL (9.8-20.1); Bilirubin, Total 0.6 mg/dL (0.2-1.2); Calc. Creatinine Clearance 75 mL/min (70-130); Calcium 8.4 mg/dL (7.8-10.44); Carbon Dioxide 43 mmol/L (23-31); Cardiac Risk 2.5 (Less than 4.5); Chloride 98 mmol/L (98-107); Cholesterol 119 mg/dl (< 200 Desired); Estimated GFR 45; Globulin 2.9 g/dL (2.4-3.5); Glucose 113 mg/dL (83-110); HDL Cholesterol 48 mg/dL (>60 Neg Risk); LDL Cholesterol, Calculated 61 mg/dL; Potassium 3.7 mmol/L (3.5-5.1); Protein, Total 5.7 g/dL (5.8-8.1); Sodium 146 mmol/L (136-145); Triglycerides 48 mg/dL (Less than 150)
[2024-05-12] MEDS: Budesonide 0.25 MG/2 ML NEB INH SCH (07:07)
[2024-05-12] MEDS ORDERED: Allopurinol 100 MG TAB PO SCH (10:15)
[2024-05-12] MEDS: FLUoxetine HCl 20 MG CAP PO SCH (10:16)
[2024-05-12] MEDS: Torsemide 20 MG TAB PO SCH (10:16)
[2024-05-12] MEDS: Amlodipine 5 MG TAB PO SCH (10:16)
[2024-05-12] MEDS: Cholecalciferol 1,000 UNITS (25 MCG) TAB PO SCH (10:20)
[2024-05-12] MEDS: Apixaban 5 MG TAB PO SCH (10:21)
[2024-05-12] MEDS: Losartan 25 MG TAB PO SCH (10:24)
[2024-05-12] MEDS ORDERED: Regadenoson 0.4 MG/5 ML SYRINGE ONE (11:43)
[2024-05-12] MEDS: FLU (Fluad Triv) TS24-25 (65UP)/MF59C/PF 45 MCG/0.5 ML Syringe IM ONE (11:55)
[2024-05-12] MEDS: Atorvastatin Calcium 40 MG TAB PO SCH (20:31)
[2024-05-13] MEDS: Ipratropium/Albuterol 3 ML NEB NEB PRN (07:07)
[2024-05-13 07:51] LABS: Hematocrit 32.5 % (36.0-47.0); Hemoglobin 9.7 g/dL (12.0-16.0); Mean Corpuscular HGB CONC 29.8 g/dL (32.0-36.0); Mean Corpuscular Hemoglobin 30.5 pg (27.0-31.0); Mean Corpuscular Volume 102.2 fL (78.0-98.0); Mean Platelet Volume 11.4 fL (7.4-10.4); Platelet Count 114 10x3/uL (130-400); RBC Distribution Width 15.1 % (11.5-14.5); Red Blood Cell (RBC) Count 3.18 mill/uL (4.20-5.40)
[2024-05-13 07:58] LABS: ALT (SGPT) 7 U/L (8-55); AST (SGOT) 12 U/L (5-34); Albumin 2.7 g/dL (3.4-4.8); Alkaline Phosphatase 95 U/L (40-110); Anion Gap 11 mmol/L (10-20); BUN (Urea Nitrogen) 20 mg/dL (9.8-20.1); Bilirubin, Total 0.6 mg/dL (0.2-1.2); Calc. Creatinine Clearance 72 mL/min (70-130); Calcium 8.8 mg/dL (7.8-10.44); Carbon Dioxide 44 mmol/L (23-31); Chloride 96 mmol/L (98-107); Estimated GFR 44; Glucose 90 mg/dL (83-110); Potassium 3.8 mmol/L (3.5-5.1); Protein, Total 5.7 g/dL (5.8-8.1); Sodium 147 mmol/L (136-145)
[2024-05-13 08:36] LABS: Hypochromia SLIGHT = 6-15 cells HPF (0-5); Macrocytosis SLIGHT = 6-15 cells HPF (0-5); Platelet Adequacy Comment Platelets Decreased; Polychromasia SLIGHT = 2-3 cells HPF (0-2)
[2024-05-13 08:37] LABS: #Basophils 0.03 10x3/uL (0.0-0.2); %Basophils 0.5 % (0.0-1.0); %Eosinophils 4.5 % (0.0-10.0); %Lymphocytes 17.5 % (21.0-51.0); %Neutrophils 67.2 % (42.0-75.0)
[2024-05-13] MEDS: Allopurinol 100 MG TAB PO SCH (09:28)
[2024-05-13] MEDS: Losartan 25 MG TAB PO SCH (13:16)
[2024-05-13] MEDS: Cyclobenzaprine 10 MG TAB PO SCH (13:16)
[2024-05-14 04:14] LABS: #Basophils 0.03 10x3/uL (0.0-0.2); %Basophils 0.5 % (0.0-1.0); %Eosinophils 5.5 % (0.0-10.0); %Lymphocytes 17.8 % (21.0-51.0); %Monocytes 9.9 % (0.0-10.0); %Neutrophils 66.1 % (42.0-75.0); Hematocrit 30.6 % (36.0-47.0); Hemoglobin 9.5 g/dL (12.0-16.0); Mean Corpuscular Hemoglobin 30.4 pg (27.0-31.0); Mean Corpuscular Volume 98.1 fL (78.0-98.0); Mean Platelet Volume 11.1 fL (7.4-10.4); Platelet Count 106 10x3/uL (130-400); RBC Distribution Width 15.1 % (11.5-14.5); Red Blood Cell (RBC) Count 3.12 mill/uL (4.20-5.40)
[2024-05-14 04:22] LABS: ALT (SGPT) 6 U/L (8-55); AST (SGOT) 10 U/L (5-34); Albumin 2.5 g/dL (3.4-4.8); Alkaline Phosphatase 83 U/L (40-110); Anion Gap 9 mmol/L (10-20); BUN (Urea Nitrogen) 22 mg/dL (9.8-20.1); Bilirubin, Total 0.5 mg/dL (0.2-1.2); Calc. Creatinine Clearance 73 mL/min (70-130); Calcium 8.3 mg/dL (7.8-10.44); Carbon Dioxide 45 mmol/L (23-31); Chloride 94 mmol/L (98-107); Estimated GFR 45; Globulin 2.8 g/dL (2.4-3.5); Glucose 92 mg/dL (83-110); Potassium 3.7 mmol/L (3.5-5.1); Protein, Total 5.3 g/dL (5.8-8.1); Sodium 144 mmol/L (136-145)
[2024-05-15 05:04] LABS: ALT (SGPT) 9 U/L (8-55); AST (SGOT) 14 U/L (5-34); Albumin 2.8 g/dL (3.4-4.8); Alkaline Phosphatase 90 U/L (40-110); Anion Gap 10 mmol/L (10-20); BUN (Urea Nitrogen) 23 mg/dL (9.8-20.1); Bilirubin, Total 0.6 mg/dL (0.2-1.2); Calc. Creatinine Clearance 64 mL/min (70-130); Calcium 8.8 mg/dL (7.8-10.44); Carbon Dioxide 42 mmol/L (23-31); Chloride 96 mmol/L (98-107); Estimated GFR 37; Globulin 3.2 g/dL (2.4-3.5); Glucose 92 mg/dL (83-110); Potassium 3.7 mmol/L (3.5-5.1); Sodium 144 mmol/L (136-145)
[2024-05-15 05:11] LABS: #Basophils 0.05 10x3/uL (0.0-0.2); %Basophils 0.7 % (0.0-1.0); %Eosinophils 5.8 % (0.0-10.0); %Lymphocytes 15.3 % (21.0-51.0); %Monocytes 8.1 % (0.0-10.0); %Neutrophils 69.8 % (42.0-75.0); Hematocrit 35.2 % (36.0-47.0); Hemoglobin 10.9 g/dL (12.0-16.0); Mean Corpuscular Hemoglobin 30.4 pg (27.0-31.0); Mean Corpuscular Volume 98.1 fL (78.0-98.0); Mean Platelet Volume 11.3 fL (7.4-10.4); Platelet Count 114 10x3/uL (130-400); Red Blood Cell (RBC) Count 3.59 mill/uL (4.20-5.40)
[2024-05-15] MEDS: Enoxaparin 120 MG/0.8 ML SYRINGE SC SCH (06:43)
[2024-05-15] MEDS ORDERED: Communication Order-Pharmacy FS SCH (11:00)
[2024-05-15] MEDS ORDERED: Enoxaparin 120 MG/0.8 ML SYRINGE SC SCH (18:00)
[2024-05-16 04:56] LABS: #Basophils 0.03 10x3/uL (0.0-0.2); %Basophils 0.5 % (0.0-1.0); %Eosinophils 5.7 % (0.0-10.0); %Lymphocytes 16.4 % (21.0-51.0); %Monocytes 9.1 % (0.0-10.0); Hematocrit 31.8 % (36.0-47.0); Hemoglobin 9.7 g/dL (12.0-16.0); Mean Corpuscular HGB CONC 30.5 g/dL (32.0-36.0); Mean Corpuscular Hemoglobin 30.3 pg (27.0-31.0); Mean Corpuscular Volume 99.4 fL (78.0-98.0); Mean Platelet Volume 10.9 fL (7.4-10.4); Platelet Count 109 10x3/uL (130-400); RBC Distribution Width 14.9 % (11.5-14.5)
[2024-05-16 05:02] LABS: ALT (SGPT) 8 U/L (8-55); AST (SGOT) 12 U/L (5-34); Albumin 2.7 g/dL (3.4-4.8); Alkaline Phosphatase 83 U/L (40-110); Anion Gap 8 mmol/L (10-20); BUN (Urea Nitrogen) 23 mg/dL (9.8-20.1); Bilirubin, Total 0.6 mg/dL (0.2-1.2); Calc. Creatinine Clearance 67 mL/min (70-130); Calcium 8.8 mg/dL (7.8-10.44); Carbon Dioxide 43 mmol/L (23-31); Chloride 97 mmol/L (98-107); Estimated GFR 40; Glucose 92 mg/dL (83-110); Potassium 3.6 mmol/L (3.5-5.1); Protein, Total 5.7 g/dL (5.8-8.1); Sodium 144 mmol/L (136-145)
[2024-05-16] MEDS ORDERED: Heparin 10,000 UNITS/ 10 ML VIAL ONE (06:35)
[2024-05-16] MEDS ORDERED: Verapamil 5 MG/2 ML VIAL ONE (06:35)
[2024-05-16] MEDS ORDERED: Nitroglycerin 50 MG/250 ML BOT 250 ML ONE (06:35)
[2024-05-16] MEDS ORDERED: fentaNYL 50 mcg/mL 1 mL Vial ONE (07:35)
[2024-05-16] MEDS ORDERED: Midazolam HCl 2 mg/2 ml Vial ONE (07:35)
[2024-05-16] MEDS: Apixaban 5 MG TAB PO SCH (09:22)
[2024-05-16 11:55] VITALS: BP 142/77; TEMP 97.7
[2024-05-16 12:22] LABS: Bacteria/HPF None Seen HPF (None Seen); Bilirubin Negative (Negative); Blood, Urine Negative (Negative); CAUTI Indications for Culture Dysuria,urgency,freq; Clarity Clear (Clear); Glucose, Urine (Dipstick) Normal (Negative); Ketone, Urine Negative (Negative); Leukocyte Negative Leu/uL (Negative); Nitrite Negative (Negative); Protein, Urine (Dipstick) Negative (Neg-Trace); RBC/HPF 0-3 HPF (0-3); Specific Gravity, Urine 1.001 (1.002-1.036); Squamous Epithelial 0-3 HPF (0-3); Urobilinogen Normal mg/dL (Less than 2); pH, Urine 7.5 (5.0-9.0)
[2024-05-16 12:26] LABS: Urine Culture Reflex No No
== END 2024-05-16 15:57 | disposition home or self-care (01) | DRG 313 ==
LOC: ERS 16:45 → 2NO 20:26 → OBSVTOIN 05-13 16:21
PROVIDERS: ADMIT Family Medicine; ATTEND Family Medicine
DX: R07.89 Other chest pain (principal); I50.32 Chronic diastolic (congestive) heart failure; I13.0 Hypertensive heart and chronic kidney disease with heart failure and stage 1 through stage 4 chronic kidney disease, or unspecified chronic kidney disease; E87.0 Hyperosmolality and hypernatremia; M94.0 Chondrocostal junction syndrome [Tietze]; I25.10 Atherosclerotic heart disease of native coronary artery without angina pectoris; I35.0 Nonrheumatic aortic (valve) stenosis; J44.9 Chronic obstructive pulmonary disease, unspecified; E87.6 Hypokalemia; M10.9 Gout, unspecified; N18.32 Chronic kidney disease, stage 3b; Z79.01 Long term (current) use of anticoagulants; Z79.899 Other long term (current) drug therapy; I25.2 Old myocardial infarction; Z88.1 Allergy status to other antibiotic agents; Z88.8 Allergy status to other drugs, medicaments and biological substances; Z90.49 Acquired absence of other specified parts of digestive tract; Z90.710 Acquired absence of both cervix and uterus; Z99.81 Dependence on supplemental oxygen; Z99.3 Dependence on wheelchair; Z86.718 Personal history of other venous thrombosis and embolism; Z95.818 Presence of other cardiac implants and grafts; Z53.8 Procedure and treatment not carried out for other reasons
CPT/HCPCS: 36415; 36416; 71045; 71275; 78452; 80053; 80061; 81001; 83036; 83880; 84443; 84484; 85025; 85379; 87077; 87086; 87186; 93005; 93017; 93306; 93970; 94640; 94760; 96374; A9500; G0378; J1644; J1650; J1940; J2250; J2785; J3010; J7620; J7626; Q9967

== ENCOUNTER 2025-04-30 08:32 | Inpatient (IN) | payer MEDICARE, OTHER ==
[2025-04-30 09:41] LABS: ALT (SGPT) 8 U/L (Less than 34); AST (SGOT) 21 U/L (11-34); Albumin 3.4 g/dL (3.1-4.5); Alkaline Phosphatase 106 U/L (40-110); Anion Gap 15 mmol/L (10-20); BUN (Urea Nitrogen) 36 mg/dL (9.8-20.1); Bilirubin, Total 0.7 mg/dL (0.3-1.2); Calc. Creatinine Clearance 0 mL/min (70-130); Calcium 8.9 mg/dL (7.8-10.44); Carbon Dioxide 31 mmol/L (23-31); Chloride 102 mmol/L (98-107); Globulin 3.4 g/dL (2.4-3.5); Glucose 104 mg/dL (83-110); Lipase 17 U/L (8-78); Magnesium 2.2 mg/dL (1.6-2.6); Potassium 4.1 mmol/L (3.5-5.1); Sodium 144 mmol/L (136-145)
[2025-04-30 09:56] LABS: #Basophils 0.04 10x3/uL (0.0-0.2); #Eosinophils 0.32 10x3/uL (0.0-0.7); #Monocytes 0.52 10x3/uL (0.11-0.59); #Neutrophils 3.64 10x3/uL (1.40-6.50); %Basophils 0.7 % (0.0-1.0); %Eosinophils 5.3 % (0.0-10.0); %Lymphocytes 25.4 % (21.0-51.0); %Monocytes 8.6 % (0.0-10.0); %Neutrophils 59.8 % (42.0-75.0); Hematocrit 38.4 % (36.0-47.0); Hemoglobin 12.1 g/dL (12.0-16.0); INR-International Normal Ratio 1.2; Mean Corpuscular Hemoglobin 30.3 pg (27.0-31.0); Mean Corpuscular Volume 96.2 fL (78.0-98.0); PTT 41.9 sec (22.9-36.1); Platelet Count 103 10x3/uL (130-400); Prothrombin Time 15.1 sec (12.0-14.7); Red Blood Cell (RBC) Count 3.99 mill/uL (4.20-5.40); White Blood Cell (WBC) Count 6.07 10x3/uL (4.8-10.8)
[2025-04-30 10:18] LABS: Anisocytosis SLIGHT = 6-15 cells HPF (0-5); Burr Cells SLIGHT = 2-5 cells HPF (0-1); Macrocytosis SLIGHT = 6-15 cells HPF (0-5); Platelet Adequacy Comment Platelets Decreased; Polychromasia SLIGHT = 2-3 cells HPF (0-2); Schistocytes SLIGHT = 2-5 cells HPF (0-1)
[2025-04-30] MEDS ORDERED: LevoFLOXacin 750 mg/D5W 150 ml Premix Bag ONE (10:59)
[2025-04-30] MEDS ORDERED: Furosemide 40 MG (4 mL) VIAL ONE (10:59)
[2025-04-30] MEDS ORDERED: Iopamidol-370 76% 500 ML MDV (1 ML CHARGE) ONE (11:14)
[2025-04-30] MEDS ORDERED: Ondansetron PF 4 MG/2 ML Vial IVP PRN (11:27)
[2025-04-30] MEDS ORDERED: Guaifenesin DM 100-10/5 ML UDCUP PO PRN (11:27)
[2025-04-30] MEDS ORDERED: Electrolyte Replacement Protocol 1 EACH FS SCH (11:30)
[2025-04-30] MEDS ORDERED: Albuterol 200 PUFF (6.7GM INHALER) INH PRN (11:34)
[2025-04-30] MEDS ORDERED: Potassium Chloride 20 MEQ in Premix 1 BAG IVPB PRN (11:45)
[2025-04-30] MEDS ORDERED: PHOS-NAK 1 PKT PACK PO PRN (11:45)
[2025-04-30] MEDS ORDERED: Magnesium 2 GM/50 ML(in water) 2 GM in Premix 1 BAG IVPB PRN (11:45)
[2025-04-30 12:02] LABS: Actual Bicarbonate (HCO3v) 33.5 mEq/L (22-28); Analyzer IN Cardio ER; Base Excess 7.1 mEq/L (-2.0 to +3.0); Calcium, Ionized (venous) 1.05 mmol/L (1.16-1.32); Chloride (VBG) 101 mmol/L (98-106); Hematocrit-VBG 37 % (36.0-47.0); Hemoglobin (Hb) 12.7 g/dL (11.7-16.1); Potassium (VBG) 3.88 mmol/L (3.70-5.30); Sodium 143 mmol/L (133-146)
[2025-04-30] MEDS ORDERED: hydrALAZINE 20 MG/ML VIAL SLOW IVP PRN (14:46)
[2025-04-30] MEDS: Losartan 25 MG TAB PO SCH (15:40)
[2025-04-30] MEDS: Acetaminophen 325 MG TAB PO PRN (16:03)
[2025-04-30] MEDS: Apixaban 5 MG TAB PO SCH (22:13)
[2025-04-30] MEDS: Famotidine/PF 20 mg/2ml Vial SLOW IVP SCH (22:13)
[2025-05-01 06:09] LABS: #Basophils Less than 0.03 10x3/uL (0.0-0.2); #Eosinophils Less than 0.03 10x3/uL (0.0-0.7); #Monocytes 0.08 10x3/uL (0.11-0.59); #Neutrophils 3.23 10x3/uL (1.40-6.50); %Basophils 0.0 % (0.0-1.0); %Eosinophils 0.0 % (0.0-10.0); %Lymphocytes 10.9 % (21.0-51.0); %Monocytes 2.1 % (0.0-10.0); %Neutrophils 86.2 % (42.0-75.0); Hematocrit 36.0 % (36.0-47.0); Hemoglobin 11.7 g/dL (12.0-16.0); Mean Corpuscular Hemoglobin 30.7 pg (27.0-31.0); Mean Corpuscular Volume 94.5 fL (78.0-98.0); Platelet Count 116 10x3/uL (130-400); Red Blood Cell (RBC) Count 3.81 mill/uL (4.20-5.40); White Blood Cell (WBC) Count 3.75 10x3/uL (4.8-10.8)
[2025-05-01 06:23] LABS: Anion Gap 17 mmol/L (10-20); BUN (Urea Nitrogen) 36 mg/dL (9.8-20.1); Bilirubin, Total 0.6 mg/dL (0.3-1.2); Calc. Creatinine Clearance 57 mL/min (70-130); Calcium 8.9 mg/dL (7.8-10.44); Carbon Dioxide 32 mmol/L (23-31); Chloride 98 mmol/L (98-107); Glucose 167 mg/dL (83-110); Potassium 3.9 mmol/L (3.5-5.1); Sodium 143 mmol/L (136-145)
[2025-05-01 06:24] LABS: ALT (SGPT) 7 U/L (Less than 34); AST (SGOT) 17 U/L (11-34); Albumin 3.1 g/dL (3.1-4.5); Alkaline Phosphatase 95 U/L (40-110); Globulin 3.1 g/dL (2.4-3.5)
[2025-05-01] MEDS: FLU (Fluad Triv) 25-26 (65UP)PF 45 MCG/0.5 ML Syringe IM ONE (08:03)
[2025-05-01] MEDS: Losartan 25 MG TAB PO SCH (08:03)
[2025-05-01] MEDS: Allopurinol 100 MG TAB PO SCH (08:03)
[2025-05-01] MEDS: Metoprolol Succinate XL 25 MG ER.TAB PO SCH (12:16)
[2025-05-01] MEDS: Torsemide 20 MG TAB PO SCH (12:16)
[2025-05-01] MEDS: Famotidine/PF 20 mg/2ml Vial SLOW IVP SCH (22:01)
[2025-05-02 05:00] LABS: #Basophils Less than 0.03 10x3/uL (0.0-0.2); #Eosinophils Less than 0.03 10x3/uL (0.0-0.7); #Monocytes 0.27 10x3/uL (0.11-0.59); #Neutrophils 6.10 10x3/uL (1.40-6.50); %Basophils 0.0 % (0.0-1.0); %Eosinophils 0.0 % (0.0-10.0); %Lymphocytes 7.2 % (21.0-51.0); %Monocytes 3.9 % (0.0-10.0); %Neutrophils 88.3 % (42.0-75.0); Hematocrit 35.5 % (36.0-47.0); Hemoglobin 11.3 g/dL (12.0-16.0); Mean Corpuscular Hemoglobin 30.2 pg (27.0-31.0); Mean Corpuscular Volume 94.9 fL (78.0-98.0); Platelet Count 107 10x3/uL (130-400); Red Blood Cell (RBC) Count 3.74 mill/uL (4.20-5.40); White Blood Cell (WBC) Count 6.91 10x3/uL (4.8-10.8)
[2025-05-02 05:01] LABS: Anion Gap 16 mmol/L (10-20); BUN (Urea Nitrogen) 45 mg/dL (9.8-20.1); Calc. Creatinine Clearance 54 mL/min (70-130); Calcium 8.7 mg/dL (7.8-10.44); Carbon Dioxide 33 mmol/L (23-31); Chloride 101 mmol/L (98-107); Glucose 132 mg/dL (83-110); Potassium 4.1 mmol/L (3.5-5.1); Sodium 146 mmol/L (136-145)
[2025-05-02 05:02] LABS: CRP, High Sensitivity at Bryan 0.16 mg/dL (< or = 0.5)
[2025-05-02] MEDS ORDERED: LevoFLOXacin 750 mg/D5W 750 MG in Premix 1 BAG IVPB SCH (09:00)
[2025-05-03 05:07] LABS: #Basophils Less than 0.03 10x3/uL (0.0-0.2); #Eosinophils Less than 0.03 10x3/uL (0.0-0.7); #Monocytes 0.50 10x3/uL (0.11-0.59); #Neutrophils 7.67 10x3/uL (1.40-6.50); %Basophils 0.0 % (0.0-1.0); %Eosinophils 0.0 % (0.0-10.0); %Lymphocytes 6.5 % (21.0-51.0); %Monocytes 5.7 % (0.0-10.0); %Neutrophils 87.3 % (42.0-75.0); Hematocrit 39.1 % (36.0-47.0); Hemoglobin 12.0 g/dL (12.0-16.0); Mean Corpuscular Hemoglobin 29.9 pg (27.0-31.0); Mean Corpuscular Volume 97.5 fL (78.0-98.0); Platelet Count 116 10x3/uL (130-400); Red Blood Cell (RBC) Count 4.01 mill/uL (4.20-5.40); White Blood Cell (WBC) Count 8.78 10x3/uL (4.8-10.8)
[2025-05-03 05:46] LABS: Free T4 (Free Thyroxine) 1.05 ng/dL (0.70-1.48); Thyroid Stimulating Hormone 1.314 uIU/mL (0.35-4.94)
[2025-05-03 06:03] LABS: Anion Gap 16 mmol/L (10-20); BUN (Urea Nitrogen) 50 mg/dL (9.8-20.1); Calc. Creatinine Clearance 48 mL/min (70-130); Calcium 8.5 mg/dL (7.8-10.44); Carbon Dioxide 31 mmol/L (23-31); Chloride 101 mmol/L (98-107); Glucose 133 mg/dL (83-110); Potassium 4.1 mmol/L (3.5-5.1); Sodium 144 mmol/L (136-145)
[2025-05-03 06:04] LABS: CRP, High Sensitivity at Bryan 0.14 mg/dL (< or = 0.5)
[2025-05-03 09:25] VITALS: BMI 52.0
[2025-05-03] MEDS: ALPRAZolam 0.25 MG TAB PO PRN (15:21)
[2025-05-04 05:43] LABS: #Basophils Less than 0.03 10x3/uL (0.0-0.2); #Eosinophils Less than 0.03 10x3/uL (0.0-0.7); #Monocytes 0.91 10x3/uL (0.11-0.59); #Neutrophils 6.50 10x3/uL (1.40-6.50); %Basophils 0.0 % (0.0-1.0); %Eosinophils 0.1 % (0.0-10.0); %Lymphocytes 10.5 % (21.0-51.0); %Monocytes 10.9 % (0.0-10.0); %Neutrophils 77.9 % (42.0-75.0); Hematocrit 36.8 % (36.0-47.0); Hemoglobin 11.3 g/dL (12.0-16.0); Mean Corpuscular Hemoglobin 30.0 pg (27.0-31.0); Mean Corpuscular Volume 97.6 fL (78.0-98.0); Platelet Count 92 10x3/uL (130-400); Red Blood Cell (RBC) Count 3.77 mill/uL (4.20-5.40); White Blood Cell (WBC) Count 8.35 10x3/uL (4.8-10.8)
[2025-05-04 05:53] LABS: Anion Gap 14 mmol/L (10-20); BUN (Urea Nitrogen) 58 mg/dL (9.8-20.1); Calc. Creatinine Clearance 62 mL/min (70-130); Calcium 8.1 mg/dL (7.8-10.44); Carbon Dioxide 29 mmol/L (23-31); Chloride 101 mmol/L (98-107); Glucose 95 mg/dL (83-110); Potassium 3.9 mmol/L (3.5-5.1); Sodium 140 mmol/L (136-145)
[2025-05-04] MEDS: predniSONE 20 MG TAB PO SCH (08:40)
[2025-05-05 06:30] VITALS: BMI 52.6
[2025-05-05] MEDS: predniSONE 20 MG TAB PO SCH (08:02)
[2025-05-05 08:19] VITALS: TEMP 98
[2025-05-05 16:54] VITALS: BP 143/60
== END 2025-05-05 16:56 | disposition home or self-care (01) | DRG 190 ==
LOC: ERS 08:32 → 2NO 11:27 → MSONC 05-01 17:11
PROVIDERS: ADMIT Internal Medicine; ATTEND Hospitalist
PROC: 3E03329 Introduction of Other Anti-infective into Peripheral Vein, Percutaneous Approach (ICD-10-PCS; principal; 2025-04-30)
PROC: 3E0234Z Introduction of Serum, Toxoid and Vaccine into Muscle, Percutaneous Approach (ICD-10-PCS; 2025-05-01)
DX: J44.1 Chronic obstructive pulmonary disease with (acute) exacerbation (principal); J96.21 Acute and chronic respiratory failure with hypoxia; I50.32 Chronic diastolic (congestive) heart failure; E66.2 Morbid (severe) obesity with alveolar hypoventilation; Z68.42 Body mass index [BMI] 45.0-49.9, adult; E87.0 Hyperosmolality and hypernatremia; F32.A Depression, unspecified; I25.10 Atherosclerotic heart disease of native coronary artery without angina pectoris; N18.30 Chronic kidney disease, stage 3 unspecified; D64.1 Secondary sideroblastic anemia due to disease; D69.6 Thrombocytopenia, unspecified; Z90.49 Acquired absence of other specified parts of digestive tract; Z88.1 Allergy status to other antibiotic agents; Z88.8 Allergy status to other drugs, medicaments and biological substances; Z99.81 Dependence on supplemental oxygen; Z82.49 Family history of ischemic heart disease and other diseases of the circulatory system; Z86.718 Personal history of other venous thrombosis and embolism; Z95.5 Presence of coronary angioplasty implant and graft; Z23 Encounter for immunization
CPT/HCPCS: 36415; 71045; 71275; 80048; 80053; 82805; 83605; 83690; 83735; 83880; 84439; 84443; 84484; 85025; 85610; 85730; 86141; 87040; 87077; 87149; 87186; 87428; 93005; 94640; 96374; 96375; 97139; J1308; J1940; J1956; J2185; J2919; J7512; J7626; Q9967